=== PATIENT | female | born 1990 | race Caucasian/White ===

== ENCOUNTER 2017-03-06 12:47 | Emergency (ER) | payer OTHER ==
[2017-03-06 13:18] LABS: BILIRUBIN,URINE NEGATIVE (NEGATIVE); PH,URINE 5.5 PH (5.0-7.5)
[2017-03-06 13:23] LABS: BASOPHILS # (AUTO) 0.1 10^3/uL (0.0-0.1); BASOPHILS % (AUTO) 0.7 %; EOSINOPHILS % (AUTO) 0.1 %; HCT - HEMATOCRIT 46.8 % (37.0-47.0); LYMPHOCYTES # (AUTO) 3.3 10^3/uL (1.5-3.5); LYMPHOCYTES % (AUTO) 31.4 %; MEAN CORPUSCULAR HEMOGLOBIN 30.9 pg (27.0-31.0); MEAN CORPUSCULAR HGB CONC 34.2 g/dL (32.0-36.0); MEAN CORPUSCULAR VOLUME 90.3 fL (81.0-99.0); MEAN PLATELET VOLUME 7.4 fL (7.9-10.8); MONOCYTES # (AUTO) 0.7 10^3/uL (0.0-1.0); MONOCYTES % (AUTO) 6.4 %; NEUTROPHILS # (AUTO) 6.4 10^3/uL (1.5-6.6); NEUTROPHILS % (AUTO) 61.4 %; RED BLOOD COUNT 5.18 10^6/uL (4.20-5.40); RED CELL DISTRIBUTION WIDTH 13.1 % (12.0-15.0); UNCORRECTED WHITE BLOOD COUNT 10.5 x10^3/uL; WHITE BLOOD COUNT 10.5 x10^3/uL (4.8-10.8)
[2017-03-06 13:27] LABS: HCG UR QUAL NEGATIVE; UA w/ MICROSCOPIC CHARGE YES
[2017-03-06 13:29] LABS: UR CULTURE IF IND INDICATED; WBC,URINE 0-3 /HPF (0-5)
[2017-03-06 13:36] LABS: ALBUMIN/GLOBULIN RATIO 1.4 (1.0-2.2); BILIRUBIN,TOTAL 0.5 mg/dL (0.2-1.0); CALCIUM 9.1 mg/dL (8.5-10.3); CREATININE 0.9 mg/dL (0.4-1.0); POTASSIUM 3.6 mmol/L (3.5-5.0); TOTAL PROTEIN 8.5 g/dL (6.7-8.2)
[2017-03-06] MEDS ORDERED: SODIUM CHLORIDE FLUSH 0.9% 10 ML SYRINGE IVP ONE ×3 (13:51→16:48)
[2017-03-06] MEDS ORDERED: PANTOPRAZOLE 40 MG VIAL IVP STA (13:58)
[2017-03-06] MEDS ORDERED: MAG HYDROX/AL HYDROX/SIMETH 30 ML UDC PO STA (13:58)
[2017-03-06] MEDS ORDERED: ONDANSETRON 4 MG/2 ML VIAL IVP STA (13:58)
[2017-03-06] MEDS ORDERED: SUCRALFATE 1 GM/10 ML UDC PO STA (13:58)
[2017-03-06] MEDS ORDERED: LIDOCAINE VISCOUS 2% 15 ML UDC MM STA (13:58)
--- NOTE | 2017-03-06 14:01 | ED Physician Documentation ---
PD HPI ABD PAIN - Stated complaint Stated Complaint: LEFT ABD PX - Chief complaint Chief Complaint: Abd Pain - History obtained from History obtained from: Patient - History of Present Illness Timing - onset: Last night Timing - duration: Days (1) Timing - details: Gradual onset Pain level max: 8 Pain level now: 8 Quality: Aching, Pain Location: Epigastric, LUQ Radiation: Other (non-radiating) Improved by: Other (curling up in a ball) Worsened by: Eating, Other (drinking etoh) Associated symptoms: No: Fever, Nausea, Vomiting, Hematemesis, Diarrhea, Constipation, Melena, Hematochezia Similar symptoms before: Has not had sx before Recently seen: Not recently seen - Additional information Additional information: states abd pain since last night worse today. States normally drinks etoh "throughout the weekend". No vomiting, no diarrhea, no chance of . Has not had these symptoms before. Review of Systems Ten Systems: 10 systems reviewed and negative Constitutional: denies: Fever, Chills Ears: denies: Ear pain Nose: denies: Rhinorrhea / runny nose, Congestion Throat: denies: Sore throat Cardiac: denies: Chest pain / pressure Respiratory: denies: Cough GI: denies: Nausea, Vomiting, Diarrhea, Hematemesis, Bloody / black stool : denies: Dysuria, Frequency, Hesitancy, Now EGA Skin: denies: Rash Musculoskeletal: denies: Neck pain, Back pain Neurologic: denies: Headache PD PAST MEDICAL HISTORY - Past Medical History Past Medical History: No - Past Surgical History Past Surgical History: No - Present Medications Home Medications: Ambulatory Orders Medication Instructions Recorded Confirmed Famotidine [Pepcid] 20 mg PO BID #20 tablet 03/06/17 Hydrocodone/Acetaminophen 1 - 2 each PO Q6H PRN #10 tablet 03/06/17 [Hydrocodon-Acetaminophen 5-325] Omeprazole [PriLOSEC] 20 mg PO DAILY #14 capsule 03/06/17 Ondansetron Odt [Zofran] 4 mg TL Q6H PRN #10 tablet 03/06/17 Sucralfate [Carafate] 1 gm PO ACHS #60 tablet 03/06/17 - Allergies Allergies/Adverse Reactions: Allergies Allergy/AdvReac Type Severity Reaction Status Date / Time No Known Drug Allergies Allergy Verified 03/06/17 12:55 - Social History Does the pt smoke?: Yes Smoking Status: Current every day smoker Does the pt have substance abuse?: No PD ED PE NORMAL - Vitals Vital signs reviewed: Yes - General General: Alert and oriented X 3, No acute distress - HEENT HEENT: PERRL, Moist mucous membranes - Neck Neck: Supple, no meningeal sign - Cardiac Cardiac: RRR, Strong equal pulses - Respiratory Respiratory: No respiratory distress, Clear bilaterally - Abdomen Abdomen: Normal bowel sounds, Soft, Non distended, Other (Tender to palpation periumbilical. Otherwise normal exam. No peritoneal signs) - Derm Derm: Warm and dry - Extremities Extremities: No edema - Neuro Neuro: Alert and oriented X 3 - Psych Psych: Normal mood, Normal affect Results - Vitals Vitals: Vital Signs - 24 hr 03/06/17 03/06/17 03/06/17 12:56 14:27 17:33 Temperature 37.5 C Heart Rate 101 H 97 61 Respiratory 20 16 15 Rate Blood Pressure 146/93 H 113/67 O2 Saturation 99 100 98 Oxygen O2 Source Room air - Labs Labs: Laboratory Tests 03/06/17 03/06/17 03/06/17 13:00 13:15 13:15 WBC 10.5 RBC 5.18 Hgb 16.0 Hct 46.8 MCV 90.3 MCH 30.9 MCHC 34.2 RDW 13.1 Plt Count 243 MPV 7.4 L Neut # 6.4 Lymph # 3.3 [place] # 0.7 Eos # 0.0 Baso # 0.1 Absolute Nucleated RBC 0.00 Nucleated RBCs 0.0 Sodium 142 Potassium 3.6 Chloride 108 Carbon Dioxide 21 Anion Gap 13.0 BUN 8 Creatinine 0.9 Estimated GFR (MDRD) 76 L Glucose 91 Calcium 9.1 Total Bilirubin 0.5 AST 32 ALT 20 Alkaline Phosphatase 69 Total Protein 8.5 H Albumin 5.0 Globulin 3.5 Albumin/Globulin Ratio 1.4 Lipase 32 Urine Color YELLOW Urine Clarity HAZY Urine pH 5.5 Ur Specific [place] <=1.005 Urine Protein NEGATIVE Urine Glucose (UA) NEGATIVE Urine Ketones NEGATIVE Urine Occult Blood TRACE-INTA Urine Nitrite POSITIVE H Urine Bilirubin NEGATIVE Urine Urobilinogen 0.2 (NORMAL) Ur Leukocyte Esterase NEGATIVE Urine RBC 0-5 Urine WBC 0-3 Ur Squamous Epith Cells FEW Squamous Urine Bacteria Many H Ur Microscopic Review INDICATED Urine Culture Comments INDICATED Urine HCG, Qual NEGATIVE Ethyl Alcohol 03/06/17 14:00 WBC RBC Hgb Hct MCV MCH MCHC RDW Plt Count MPV Neut # Lymph # [place] # Eos # Baso # Absolute Nucleated RBC Nucleated RBCs Sodium Potassium Chloride Carbon Dioxide Anion Gap BUN Creatinine Estimated GFR (MDRD) Glucose Calcium Total Bilirubin AST ALT Alkaline Phosphatase Total Protein Albumin Globulin Albumin/Globulin Ratio Lipase Urine Color Urine Clarity Urine pH Ur Specific [place] Urine Protein Urine Glucose (UA) Urine Ketones Urine Occult Blood Urine Nitrite Urine Bilirubin Urine Urobilinogen Ur Leukocyte Esterase Urine RBC Urine WBC Ur Squamous Epith Cells Urine Bacteria Ur Microscopic Review Urine Culture Comments Urine HCG, Qual Ethyl Alcohol 276.1 - Rads (name of study) CT abdomen and pelvis Radiology: Prelim report reviewed, EMP read contemporaneously, See rad report ( No acute abnormality seen in the abdomen or pelvis. No definite findings to explain left lower quadrant abdominal pain. . Abnormal positioning of the bowel with the cecum terminating in the left upper quadrant, and placement of small bowel loops to the right of the ascending colon in the right abdomen. 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 No evidence for bowel obstruction or volvulus by CT. ) PD MEDICAL DECISION MAKING - ED course Complexity details: reviewed results, re-evaluated patient, considered differential, d/w patient, d/w family (friend/production supervisor off shift) ED course: Patient is a 26-year-old female who presents to the emergency department with alcohol intoxication and abdominal pain. Appears to be gastritis related. Feels better after GI cocktail and a small dose of morphine. Tolerating p.o. without difficulty. Not vomiting. Clear speech. Ambulating in a straight line. Counseled the patient that she needs to obtain help with her alcohol and her drinking as this will harm her and could potentially kill her. She states that [place] Will prescribe a small amount of pain medication for her as she will still have pain until her stomach begins to heal itself. She is counseled not to take the pain medication when she is drinking or has been drinking alcohol. She states understanding of this. She is not clinically intoxicated despite her elevated alcohol level. Her friend/production supervisor off shift will also help her with the medications. Her friend is driving her home today. No evidence of ovarian pathology. No evidence of tumor mass. No evidence of appendicitis. No evidence of volvulus or bowel obstruction. Patient counseled regarding signs and symptoms for which I believe and urgent re-evaluation would be necessary. Patient with good understanding of and agreement to plan and is comfortable going home at this time This document was made in part using voice recognition software. While efforts are made to proofread this document, sound alike and grammatical errors may occur. Departure - Departure Disposition: 01 Home, Self Care Clinical Impression: Gastritis Qualifiers: Gastritis type: alcoholic Chronicity: acute Gastritis bleeding: without bleeding Qualified Code(s): K29.20 - Alcoholic gastritis without bleeding Alcohol intoxication Qualifiers: Complication of substance-induced condition: uncomplicated Qualified Code(s): F10.120 - Alcohol abuse with intoxication, uncomplicated Abdominal pain Qualifiers: Abdominal location: periumbilical Qualified Code(s): R10.33 - Periumbilical pain Condition: Good Instructions: ED PUD Vs Gastritis Follow-Up: your,doctor in 3 days for recheck. [Other] Prescriptions: Sucralfate [Carafate] 1 gm PO ACHS #60 tablet Hydrocodone/Acetaminophen [Hydrocodon-Acetaminophen 5-325] 1 - 2 each PO Q6H PRN #10 tablet PRN Reason: pain Famotidine [Pepcid] 20 mg PO BID #20 tablet Omeprazole [PriLOSEC] 20 mg PO DAILY #14 capsule Ondansetron Odt [Zofran] 4 mg TL Q6H PRN #10 tablet PRN Reason: Nausea / Vomiting Comments: Return if you worsen. Your labs and CT scan are normal today. Avoid caffeine, alcohol, cigarettes, spicy food, fried foods, Motrin, ibuprofen and aspirin as these all may worsen your symptoms. Your blood pressure was elevated today on check in to the emergency department. This does not mean that you have hypertension, it is a common phenomenon to check into the emergency department and have elevated blood pressure. I recommend that you see your primary care physician within the week to have it rechecked when you're feeling better. Discharge Date/Time: 03/06/17 17:30
[2017-03-06] MEDS ORDERED: MAG HYDROX/AL HYDROX/SIMETH 30 ML UDC ONE (14:08)
[2017-03-06] MEDS ORDERED: SUCRALFATE 1 GM/10 ML UDC ONE (14:08)
[2017-03-06] MEDS ORDERED: PANTOPRAZOLE 40 MG VIAL ONE (14:08)
[2017-03-06] MEDS ORDERED: ONDANSETRON 4 MG/2 ML VIAL ONE (14:08)
[2017-03-06] MEDS ORDERED: LIDOCAINE VISCOUS 2% 15 ML UDC MM ONE (14:08)
[2017-03-06] MEDS ORDERED: MORPHINE 2 MG/ML CARPUJECT IVP STA (15:08)
[2017-03-06] MEDS ORDERED: MORPHINE 2 MG/ML CARPUJECT ONE (15:18)
[2017-03-06] MEDS ORDERED: IOPAMIDOL-300 100 ML VIAL IVP ONE (16:35)
[2017-03-06] MEDS ORDERED: KETOROLAC 60 MG/2 ML VIAL IVP STA (16:40)
[2017-03-06] MEDS ORDERED: KETOROLAC 15 MG/ML VIAL ONE (16:48)
--- NOTE | 2017-03-06 16:51 | CT Report ---
EXAM: CT ABDOMEN AND PELVIS EXAM DATE: 03/06/2017 04:19 PM. CLINICAL HISTORY: LLQ abd pain. COMPARISONS: None. TECHNIQUE: Routine helical CT imaging was performed through the abdomen and pelvis. IV contrast: 100 cc Isovue-300. Enteric contrast: No. Reconstructions: Coronal and sagittal. In accordance with CT protocol optimization, one or more of the following dose reduction techniques w ere utilized for this exam: automated exposure control, adjustment of mA and/or KV based on patient s ize, or use of iterative reconstructive technique. FINDINGS: Lung Bases: Unremarkable. Liver: Normal. No masses. Gallbladder/Bile Ducts: Unremarkable. Spleen: Normal. Pancreas: Normal. Adrenal Glands: Normal. Kidneys: Normal. No masses or hydronephrosis. Peritoneal Cavity/Bowel: No evidence for pneumoperitoneum or ascites. Normal caliber bowel loops with out signs of obstruction. Abnormal configuration of the right colon with cecum terminating in the lef t upper quadrant (3/33). In the right abdomen, small bowel loops are seen to the right of the ascendi ng colon. 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 No bowel dilation to re flect obstruction. No evidence for volvulus. Appendix is not definitively identified, however, no sig ns of inflammation in the abdomen. Pelvic Organs: Urinary bladder is unremarkable. Uterus and ovaries appear normal by CT. Vasculature: No aneurysms or other significant abnormality. Bones: No significant abnormality. Other: None. IMPRESSION: 1. No acute abnormality seen in the abdomen or pelvis. No definite findings to explain left lower tracy drant abdominal pain. 2. Abnormal positioning of the bowel with the cecum terminating in the left upper quadrant, and place ment of small bowel loops to the right of the ascending colon in the right abdomen. 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 No evidence for bowel obst ruction or volvulus by CT. [facility] Referring Provider Line: [phone] SITE ID: [id number]
[2017-03-06 17:34] VITALS: BP 113/67
--- NOTE | 2017-03-09 05:20 | ED Physician Documentation ---
ED Addendum - Addendum Addendum: 03/09/17 05:19 Chart accessed for culture review. Urine cultures e. coli, multiple sensitivities: recommend macrobid 100mg PO BID x 5 days
== END 2017-03-06 17:30 | disposition home or self-care (01) ==
LOC: ED 12:47
DX: K29.20 Alcoholic gastritis without bleeding (principal); F10.120 Alcohol abuse with intoxication, uncomplicated; R10.33 Periumbilical pain; R03.0 Elevated blood-pressure reading, without diagnosis of hypertension; F17.200 Nicotine dependence, unspecified, uncomplicated; Y90.8 Blood alcohol level of 240 mg/100 ml or more
CPT/HCPCS: 36415; 74177; 80053; 80320; 81001; 81025; 83690; 85025; 87077; 87086; 87181; 96374; 96375; 99283; 99284; A9270; Q9967; 81003